=== PATIENT | male | born 1945 | race Caucasian/White ===

== ENCOUNTER 2022-07-30 14:32 | Observation (INO) | payer MEDICARE ==
[2022-07-30 15:30] LABS: Basophils % (A) 1 %; Eosinophils # (A) 0.2 k/uL (0-0.7); Eosinophils % (A) 2 %; HGB 14.9 gm/dL (13.0-17.5); Lymphocytes # (A) 1.7 k/uL (1.0-4.8); Lymphocytes % (A) 21 %; MCH 30.6 pg (25.0-35.0); MCHC 34.5 g/dL (31.0-37.0); MCV 88.6 fL (80.0-100.0); Mean Platelet Volume 7.3; Monocytes # (A) 0.5 k/uL (0-1.0); Monocytes % (A) 6 %; Neutrophils # (A) 5.7 k/uL (1.3-7.7); Neutrophils % (A) 68 %; Platelet Count 286 k/uL (150-450); RBC 4.86 m/uL (4.30-5.90); RDW 13.5 % (11.5-15.5); WBC 8.3 k/uL (3.8-10.6)
[2022-07-30 15:44] LABS: Albumin 4.7 g/dL (3.5-5.0); Calcium 9.8 mg/dL (8.4-10.2); Magnesium 2.1 mg/dL (1.6-2.3); Partial Thromboplastin Time 24.8 sec (22.0-30.0); Potassium 4.8 mmol/L (3.5-5.1); Prothrombin Time 10.4 sec (9.0-12.0); Total Bilirubin 0.7 mg/dL (0.2-1.3); Total Protein 7.3 g/dL (6.3-8.2)
[2022-07-30] MEDS ORDERED: SODIUM CHLORIDE 0.9% 1,000 ML IV ONE (16:23)
--- NOTE | 2022-07-30 16:53 | XR ---
EXAMINATION TYPE: XR chest 2V DATE OF EXAM: 07/30/2022 COMPARISON: NONE HISTORY: Pain TECHNIQUE: 2 views FINDINGS: There is no heart failure nor confluent pneumonic infiltrate. Heart size is normal. There a re sternal wires. Costophrenic angles are fairly clear. Bony thorax is intact. IMPRESSION: No active cardiopulmonary disease. Normal heart.
[2022-07-30] MEDS ORDERED: NALOXONE 0.4 MG/ML 1 ML VIAL IV PRN (17:32)
--- NOTE | 2022-07-30 17:34 | ED ---
Chest Pain HPI - General Chief Complaint: Chest Pain Stated Complaint: chest pain Time Seen by Provider: 07/30/22 16:07 Source: patient Mode of arrival: wheelchair Limitations: no limitations - History of Present Illness Initial Comments: Patient is a 76-year-old male with history of CAD and hypertension presenting with chief complaint of chest pain. Patient states pain started yesterday and is located primarily on the left side. He notices it mostly when at rest. States that he was at the gym today and the pain was not active. No radiation down the arm, up the neck, or to the back. No nausea, vomiting, diaphoresis. No difficulty breathing. No cough or hemoptysis. No palpitations, weakness, abdominal pain, headache, dizziness, vision or hearing changes. - Related Data Home Medications Medication Instructions Recorded Confirmed Atorvastatin [Lipitor] 10 mg PO DAILY 07/30/22 07/30/22 Lisinopril-Hctz 10-12.5 mg 1 tab PO DAILY 07/30/22 07/30/22 [Zestoretic 10-12.5] Metoprolol Tartrate 25 mg PO BID 07/30/22 07/30/22 Allergies Allergy/AdvReac Type Severity Reaction Status Date / Time Penicillins Allergy Rash/Hives Verified 07/30/22 17:40 Review of Systems ROS Statement: Those systems with pertinent positive or pertinent negative responses have been documented in the HPI. ROS Other: All systems not noted in ROS Statement are negative. EKG Findings - EKG Comments: EKG Findings:: Sinus rhythm rate of 66. NM interval 180. QRS duration 89. QT/QTC 392/405. Inverted T waves in lead III. No ST-T deviation. No previous EKG for comparison. This EKG was also shown to and interpreted by my attending Dr. Park. Past Medical History Past Medical History: Coronary Artery Disease (CAD) History of Any Multi-Drug Resistant Organisms: None Reported Past Surgical History: Coronary Bypass/CABG Past Psychological History: No Psychological Hx Reported Smoking Status: Never smoker Past Alcohol Use History: None Reported Past Drug Use History: None Reported General Exam Limitations: no limitations General appearance: alert, in no apparent distress Head exam: Present: atraumatic, normocephalic, normal inspection Eye exam: Present: normal appearance, PERRL, EOMI. Absent: scleral icterus, conjunctival injection, periorbital swelling Neck exam: Present: normal inspection Respiratory exam: Present: normal lung sounds bilaterally. Absent: respiratory distress, wheezes, rales, rhonchi, stridor, chest wall tenderness Cardiovascular Exam: Present: regular rate, normal rhythm, normal heart sounds. Absent: systolic murmur, diastolic murmur, rubs, gallop, clicks Neurological exam: Present: alert, oriented X3, CN II-XII intact Psychiatric exam: Present: normal affect, normal mood Skin exam: Present: warm, dry, intact, normal color. Absent: rash Course Vital Signs 07/30/22 14:34 Temperature 97.7 F Pulse Rate 72 Respiratory 20 Rate Blood Pressure 159/81 O2 Sat by Pulse 100 Oximetry Chest Pain MDM - MDM Patient is a 76-year-old male history of CAD presenting with left-sided chest pain that began yesterday. No radiation of pain or other symptoms at this time. Physical examination is unremarkable. Troponin is less than 0.012. No leuko cytosis or anemia. D-dimer 0.31. BUN of 22, patient is receiving IV hydration. EKG shows T-wave inversion in lead 3, no previous EKG for comparison. Patient will be admitted for observation and evaluation by cardiology. I spoke with Farrah Garcia from [facility] who accepted admission. I discussed this case with my attending Dr. Park. Disposition Clinical Impression: Chest pain Disposition: ADMITTED IP TO THIS [facility] Condition: Fair Time of Disposition: 17:34 Decision to Admit Reason: Admit from EC Decision Date: 07/30/22 Decision Time: 17:34
[2022-07-30] MEDS: SODIUM CHLORIDE 0.9% 1,000 ML IV SCH (18:59)
[2022-07-31 08:39] VITALS: RESP 16
--- NOTE | 2022-07-31 08:55 | P.CRDCN ---
History of Present Illness History of present illness: HISTORY OF PRESENT ILLNESS: This is a 76-year-old male with a past medical history significant for coronary artery disease with previous CABG in 1998, hypertension, and hyperlipidemia. Patient does not follow with a clinical informatics manager. We have been asked to see the patient in consultation for chest pain. Patient examined at the bedside. Patient states 2 days ago he had an episode of chest pain. He states he is pretty active and goes to the gym at least 5 days a week. He states he was at the gym and afterwards he began to have some chest pain. He states it felt like a pressure type sensation. He denied any nausea or vomiting. Denied any shortness of breath. Denied any diaphoresis. He states the pain lasted for a few minutes and then resolved. The patient denies any chest pain or pressure this morning. * EKG reveals sinus mechanism with T-wave inversions in lead 3. No previous EKG available for comparison. * Chest xray negative for acute process * Laboratory data: WBC 8.3. Hemoglobin 14.9. Platelet count 286. D-dimer 0.31. Sodium 130. Potassium 4.8. BUN 22. Creatinine 1.11. Troponin negative 3. ProBNP 96. * Current home cardiac medications include metoprolol tartrate 25 mg twice a day, Lipitor 10 mg daily, lisinopril-hydrochlorothiazide 10-12.5mg daily, and aspirin 81 mg daily REVIEW OF SYSTEMS: At the time of my exam: CONSTITUTIONAL: Denies fever or chills. HEENT: Denies blurred vision, vision changes, or eye pain. Denies hemoptysis CARDIOVASCULAR: Denies chest pain. Denies orthopnea. Denies PND. Denies palpitations RESPIRATORY: Denies shortness of breath. GASTROINTESTINAL: Denies abdominal pain. Denies nausea or vomiting. HEMATOLOGIC: Denies bleeding disorders. GENITOURINARY: Denies any blood in urine. SKIN: Denies pruitis. Denies rash. PHYSICAL EXAM: VITAL SIGNS: Reviewed. GENERAL: Well-developed in no acute distress. HEENT: Head is normocephalic. Pupils are equal, round. Sclerae anicteric. Mucous membranes of the mouth are moist. Neck supple. No JVD or thyromegaly LUNGS: Respirations even and unlabored. Lungs essentially clear to auscultation bilaterally. HEART: Regular rate and rhythm. S1 and S2 heard. ABDOMEN: Soft. Nondistended. Nontender. EXTREMITIES: Normal range of motion. No clubbing or cyanosis. Peripheral pulses intact. No lower extremity edema NEUROLOGIC: Awake and alert. Oriented x 3. ASSESSMENT: Chest pain Coronary artery disease with previous CABG Hypertension Hyperlipidemia PLAN: An acute coronary event has been ruled out Resume home cardiac medications Obtain 2-D echo to assess cardiac structure and function Patient to undergo stress echo today to assess for ischemia Further recommendations pending patient's course Nurse practitioner note has been reviewed by physician. Signing provider agrees with the documented findings, assessment, and plan of care. Past Medical History Past Medical History: Coronary Artery Disease (CAD) History of Any Multi-Drug Resistant Organisms: None Reported Past Surgical History: Coronary Bypass/CABG Past Psychological History: No Psychological Hx Reported Smoking Status: Never smoker Past Alcohol Use History: None Reported Past Drug Use History: None Reported Medications and Allergies Home Medications Medication Instructions Recorded Confirmed Type Atorvastatin [Lipitor] 10 mg PO DAILY 07/30/22 07/30/22 History Lisinopril-Hctz 10-12.5 mg 1 tab PO DAILY 07/30/22 07/30/22 History [Zestoretic 10-12.5] Metoprolol Tartrate 25 mg PO BID 07/30/22 07/30/22 History Allergies Allergy/AdvReac Type Severity Reaction Status Date / Time Penicillins Allergy Rash/Hives Verified 07/30/22 17:40 Physical Exam Vitals: Vital Signs Temp Pulse Pulse Pulse Resp BP BP 07/31/22 02:00 98.0 F 72 20 139/61 07/30/22 23:00 97.8 F 68 68 18 134/78 07/30/22 14:34 97.7 F 72 20 159/81 Pulse Ox 07/31/22 02:00 96 07/30/22 23:00 95 07/30/22 14:34 100 Intake and Output 07/30/22 07/31/22 07/31/22 22:59 06:59 14:59 Intake Total 150 Output Total 300 200 Balance -150 -200 Intake: Intake, IV Titration 150 Amount Sodium Chloride 0.9% 1, 150 000 ml @ 75 mls/hr IV . [id number] [facility] Rx#:[id number] Output: Urine 300 200 Other: Voiding Method Urinal # Voids 1 Results 07/30/22 14:41 07/30/22 14:41 Cardiac Enzymes 07/30/22 07/30/22 07/30/22 Range/Units 14:41 14:41 18:01 AST 33 (17-59) U/L Troponin I <0.012 <0.012 (0.000-0.034) ng/mL 07/30/22 Range/Units 20:46 AST (17-59) U/L Troponin I <0.012 (0.000-0.034) ng/mL Coagulation 07/30/22 Range/Units 14:41 PT 10.4 (9.0-12.0) sec APTT 24.8 (22.0-30.0) sec CBC 07/30/22 Range/Units 14:41 WBC 8.3 (3.8-10.6) k/uL RBC 4.86 (4.30-5.90) m/uL Hgb 14.9 (13.0-17.5) gm/dL Hct 43.0 (39.0-53.0) % Plt Count 286 (150-450) k/uL Comprehensive Metabolic Panel 07/30/22 Range/Units 14:41 Sodium 137 (137-145) mmol/L Potassium 4.8 (3.5-5.1) mmol/L Chloride 101 (98-107) mmol/L Carbon Dioxide 23 (22-30) mmol/L BUN 22 H (9-20) mg/dL Creatinine 1.11 (0.66-1.25) mg/dL Glucose 106 H (74-99) mg/dL Calcium 9.8 (8.4-10.2) mg/dL AST 33 (17-59) U/L ALT 31 (4-49) U/L Alkaline Phosphatase 89 (38-126) U/L Total Protein 7.3 (6.3-8.2) g/dL Albumin 4.7 (3.5-5.0) g/dL Current Medications Generic Name Dose Route Start Last Admin Trade Name Freq PRN Reason Stop Dose Admin Atorvastatin Calcium 10 mg 07/31/22 09:00 Atorvastatin 10 Mg Tab PO DAILY [facility] Lisinopril/HCTZ 1 each 07/31/22 09:00 Lisinopril-Hctz 10-12.5 Mg 1 Each Tab PO DAILY [facility] Sodium Chloride 1,000 mls @ 75 mls/hr 07/30/22 17:45 07/30/22 18:59 Saline 0.9% IV 75 mls/hr .[id number] [facility] Administration Metoprolol Tartrate 25 mg 07/31/22 09:00 Metoprolol Tartrate 25 Mg Tab PO BID [facility] Naloxone HCl 0.2 mg 07/30/22 17:32 Naloxone 0.4 Mg/Ml 1 Ml Vial IV Q2M PRN Opioid Reversal Intake and Output 07/30/22 07/31/22 07/31/22 22:59 06:59 14:59 Intake Total 150 Output Total 300 200 Balance -150 -200 Intake: Intake, IV Titration 150 Amount Sodium Chloride 0.9% 1, 150 000 ml @ 75 mls/hr IV . [id number] [facility] Rx#:[id number] Output: Urine 300 200 Other: Voiding Method Urinal # Voids 1 07/30/22 14:41 07/30/22 14:41
[2022-07-31] MEDS ORDERED: ASPIRIN 81 MG PO SCH (09:00)
[2022-07-31] MEDS ORDERED: METOPROLOL TARTRATE 25 MG TAB PO SCH (09:00)
[2022-07-31] MEDS ORDERED: LISINOPRIL-HCTZ 10-12.5 MG 1 EACH TAB PO SCH (09:00)
[2022-07-31] MEDS ORDERED: ATORVASTATIN 10 MG TAB PO SCH (09:00)
[2022-07-31] MEDS: SODIUM CHLORIDE 0.9% 1,000 ML IV SCH (09:20)
[2022-07-31 11:11] LABS: Chol/HDL Ratio 3.84 Ratio; LDL Cholesterol,Calculated 109.7 mg/dL (0.0-131.0)
--- NOTE | 2022-07-31 11:20 | CA ---
Stress Echo Report Benjamin Ramos Age: 76 Gender: M : 1945 Exam Date: 07/31/2022 10:07 Exam Location: [place] [facility] Ht (in): 66 Wt (lb): 165 Ordering Physician: Lili Jewell Referring Physician: [id number] Emergency Operator: Glory Sheikh RDCS Technologist Procedure CPT: Indication: CP, hx of CAD ICD-9 Codes: Rhythm: Patient History: CHEST PAIN, HTN, ELEVATED CHOLESTEROL LEVELS, CARDIAC CATHETERIZATION, CABGX4 Cardiac Medications: Medications in past 24 hours: Contrast: Stress Results Protocol: Jesus Total dose(mL): Exercise Duration (min:sec): Max ST Depression (mm): Angina Score: Ibrahim Score: METS: 9.1 Resting HR: 111 Resting BP: 161 / 87 Peak HR: 153 Peak BP: 176 / 80 Max Predicted HR: 144 106 % Max Predicted HR Target HR: 122 Double Product: [id number] Stress Summary: BP Response: Reason for Termination: MAX EXERTION/TARGET HR Cardiac Symptoms: NO SYMPTOMS ECG Analysis Resting ECG: Stress ECG: Arrhythmia: Echo Analysis Resting Echo: Peak Echo Analysis: MEASUREMENTS (Male/Female) Normal Values CONCLUSIONS Patient underwent exercise stress echo with a Jesus protocol treadmill stress test. Patient exercised into Stage 2 for a total of 7 minutes 30 seconds reaching a total of 9.1 METS. Patient's maximum heart rate was 153 which represented 106 % age-predicted maximum heart rate. Stress EKG portion: At baseline patient's EKG showed normal sinus rhythm, normal axis, no significant ST or T wave abnormalities. At peak exercise, EKG showed nonspecific and nondiagnostic upsloping 0.[address] depressions in the inferior and lateral leads. Stress echo portion: 2-D echocardiogram was performed in the parasternal long, personal short, apical 2 and apical four-chamber views at rest, peak exercise and in recovery. At baseline, echocardiogram showed left ventricular ejection fraction 55% without wall motion abnormalities. With peak exercise, echocardiogram shows improvement in left ventricular ejection fraction, increase contractility, decrease in left ventricular end systolic dimension without wall motion abnormalities consistent with a normal response to exercise. Conclusions: 1. Normal EKG and echo response to exercise without evidence of inducible ischemia. 2. Fair exercise capacity. Dr. Shawn Whittaker DO (Electronically Signed) Final Date: 31 July 2022 11:19
[2022-07-31 12:36] VITALS: BP 153/84; PULSE 65; TEMP 97.7
--- NOTE | 2022-07-31 14:31 | P.HPIM ---
History of Present Illness H&P Date: 07/31/22 This is a 76-year-old male who presented to the emergency department with chest pain that he noticed while at rest. Patient does have a past medical history of coronary disease along with hypertension. Serial troponins were negative and cardiology was consulted. Patient does take cholesterol medications along with blood pressure medications and metoprolol on a daily basis and follows with Dr. Valdez in the outpatient setting. Chest x-ray and admission shows no active cardiopulmonary process with a normal heart and EKG shows sinus rhythm with a heart rate of 66 bpm. Labs reviewed and within normal limits and d-dimer was also done which was negative at 0.31. Serial troponins 3 were 0.012. Patient was seen and evaluated by cardiology earlier this morning and 2-D echo along with stress test was ordered. Review Of Systems: Constitutional: No fever, no chills, no night sweats. No weight change. No weakness, fatigue or lethargy. No daytime sleepiness. EENT: No headache. No blurred vision or double vision, no loss of vision. No loss of Hearing, no ringing in the ears, no dizziness. No nasal drainage or congestion. No epistaxis. No sore throat. Lungs: No shortness of breath, cough, no sputum production. No wheezing. Cardiovascular: Reports chest pain while at rest at home that had resolved, no lower extremity edema. No palpitations. No paroxysmal nocturnal dyspnea. No orthopnea. No lightheadedness or dizziness. No syncopal episodes. Abdominal: No abdominal pain. No nausea, vomiting. No diarrhea. No constipation. No bloody or tarry stools.. No loss of appetite. Genitourinary: No dysuria, increased frequency, urgency. No urinary retention. Musculoskeletal: No myalgias. No muscle weakness, no gait dysfunction, no frequent falls. No back pain. No neck pain. Integumentary: No wounds, no lesions. No rash or pruritus. No unusual bruising. No change in hair or nails. Neurologic: No aphasia. No facial droop. No change in mentation. No head injury. No headache. No paralysis. No paresthesia. Psychiatric: No depression. No anxiety. No mood swings. Endocrine: No abnormal blood sugars. No weight change. No excessive sweating or thirst. No cold intolerance. PHYSICAL EXAMINATION: GENERAL: The patient is alert and oriented x4, Well developed, well nourished. HEENT: Pupils are round and equally reacting to light. EOMI. no scleral icterus. No conjunctival pallor. Normocephalic, atraumatic. No pharyngeal erythema. No thyromegaly. CARDIOVASCULAR: S1 and S2 muffled PULMONARY: Breath sounds are clear to auscultation with no wheezing or rhonchi noted. ABDOMEN: soft. Nontender on exam. obese. non-distended, normoactive bowel sounds. No palpable organomegaly. MUSCULOSKELETAL: No joint swelling or deformity. EXTREMITIES: No cyanosis, clubbing, or pedal edema. NEUROLOGICAL: Gross neurological examination did not reveal any focal deficits. SKIN: No rashes. Assessment: Chest pain, ruled out ACS History of coronary artery disease History of coronary artery bypass grafting Hyperlipidemia Hypertension GI prophylaxis DVT prophylaxis Full code Plan: Recommend to continue with current medications and management with cardiology following. Patient was seen and evaluated by cardiology this morning and serial troponins were negative and underwent 2-D echo with stress testing which showed an EF of 55% without wall motion abnormalities and during peak exercise improved LV ejection fraction within normal stress echo noted. Patient was encouraged to continue taking medications along with statin and follow-up with primary care provider in cardiology outpatient. Patient will be discharged later today. The impression and plan of care has been dictated by Sally Valencia, nurse practitioner as directed. Dr. Ashok MD I have performed a history and examination and MDM of this patient, discussed the same with the dictator, and agree with the dictator's assessment and plan as written ,documented as a scribe. Based on total visit time, I have performed more than 50% of the visit. Any additional findings or plans will be noted. Past Medical History Past Medical History: Coronary Artery Disease (CAD) History of Any Multi-Drug Resistant Organisms: None Reported Past Surgical History: Coronary Bypass/CABG Past Psychological History: No Psychological Hx Reported Smoking Status: Never smoker Past Alcohol Use History: None Reported Past Drug Use History: None Reported Medications and Allergies Home Medications Medication Instructions Recorded Confirmed Type Atorvastatin [Lipitor] 10 mg PO DAILY 07/30/22 07/30/22 History Lisinopril-Hctz 10-12.5 mg 1 tab PO DAILY 07/30/22 07/30/22 History [Zestoretic 10-12.5] Metoprolol Tartrate 25 mg PO BID 07/30/22 07/30/22 History Aspirin 81 mg PO DAILY 30 Days #30 tab 07/31/22 Rx Allergies Allergy/AdvReac Type Severity Reaction Status Date / Time Penicillins Allergy Rash/Hives Verified 07/30/22 17:40 Physical Exam Vitals: Vital Signs Temp Pulse Pulse Pulse Resp BP BP 07/31/22 07:00 97.9 F 88 16 166/100 07/31/22 02:00 98.0 F 72 20 139/61 07/30/22 23:00 97.8 F 68 68 18 134/78 07/30/22 14:34 97.7 F 72 20 159/81 Pulse Ox 07/31/22 07:00 97 07/31/22 02:00 96 07/30/22 23:00 95 07/30/22 14:34 100 Intake and Output 07/30/22 07/31/22 07/31/22 22:59 06:59 14:59 Intake Total 150 Output Total 300 200 Balance -150 -200 Intake: Intake, IV Titration 150 Amount Sodium Chloride 0.9% 1, 150 000 ml @ 75 mls/hr IV . [id number] [facility] Rx#:[id number] Output: Urine 300 200 Other: Voiding Method Urinal # Voids 1 Results CBC & Chem 7: 07/30/22 14:41 07/30/22 14:41 Labs: Abnormal Lab Results - Last 24 Hours (Table) 07/30/22 Range/Units 14:41 BUN 22 H (9-20) mg/dL Glucose 106 H (74-99) mg/dL Assessment and Plan Time with Patient: Greater than 30
--- NOTE | 2022-08-01 11:18 | CA ---
Transthoracic Echo Report Name: Benjamin Ramos Age: 76 Gender: M : 1945 Exam Date: 07/31/2022 10:23 Exam Location: [place] [facility] Ht (in): 66 Wt (lb): 165 Ordering Physician: Lili Jewell Attending/Referring Phys: [id number], Best Credit Administrator Glory Sheikh, ABEBA Procedure CPT: Indications: LV function Cardiac Hx: Technical Quality: Good Contrast 1: Total Dose (mL): Contrast 2: Total Dose (mL): MEASUREMENTS (Male / Female) Normal Values 2D ECHO LV Diastolic Diameter PLAX 4.2 cm 4.2 - 5.9 / 3.9 - 5.3 cm LV Systolic Diameter PLAX 2.6 cm IVS Diastolic Thickness 1.1 cm 0.6 - 1.0 / 0.6 - 0.9 cm LVPW Diastolic Thickness 1.0 cm 0.6 - 1.0 / 0.6 - 0.9 cm LV Relative Wall Thickness 0.5 RV Internal Dim ED PLAX 3.0 cm LA Systolic Diameter LX 3.5 cm 3.0 - 4.0 / 2.7 - 3.8 cm LA Volume 25.3 cm??? 18 - 58 / 22 - 52 cm??? M-MODE Aortic Root Diameter MM 3.1 cm MV E Point Septal Separation 0.3 cm AV Cusp Separation MM 2.2 cm DOPPLER AV Peak Velocity 154.3 cm/s AV Peak Gradient 9.5 mmHg MV Area PHT 4.1 cm??? Mitral E Point Velocity 88.5 cm/s Mitral A Point Velocity 92.8 cm/s Mitral E to A Ratio 1.0 MV Deceleration Time 183.6 ms MV E' Velocity 7.5 cm/s Mitral E to MV E' Ratio 11.8 FINDINGS Left Ventricle Left ventricular ejection fraction is estimated at 60-65 %. Left ventricular cavity size normal. Left ventricular wall thickness normal. Right Ventricle Normal right ventricular size and function. Unable to estimate the right ventricular systolic pressure. Right Atrium Normal right atrial size. Left Atrium Normal left atrial size. No evidence for an atrial septal defect. Mitral Valve Structurally normal mitral valve. No mitral stenosis, regurgitation or prolapse. Aortic Valve Trileaflet aortic valve. No aortic valve stenosis or regurgitation. Tricuspid Valve Structurally normal tricuspid valve. No tricuspid stenosis, regurgitation or prolapse. Pulmonic Valve Structurally normal pulmonic valve. Pericardium Normal pericardium. No pericardial effusion. Aorta Normal size aortic root and proximal ascending aorta. CONCLUSIONS Normal left ventricular ejection fraction 60-65% Normal left atrial and right atrial size No pericardial effusion Previewed by: Dr. Shawn Whittaker DO (Electronically Signed) Final Date: 01 August 2022 11:17
--- NOTE | 2022-08-02 16:29 | P.DS ---
Providers Date of admission: 07/30/22 16:33 Expected date of discharge: 07/31/22 Attending physician: Lit Yadav Consults: 07/30/22 17:32 Consult Physician Urgent Consulting Provider: [facility] Consult Reason/Comments: Chest pain, history of CAD Do you want consulting provider notified?: Yes Primary care physician: Daniele Valdez [facility] Course: Final diagnosis Chest pain, ruled out ACS History of coronary artery disease History of coronary artery bypass grafting Hyperlipidemia Hypertension GI prophylaxis DVT prophylaxis Full code Discharge disposition Patient is being discharged in a stable condition with guarded prognosis to home. Patient will follow-up with Dr. Valdez in the outpatient setting upon discharge. Patient is to follow up with cardiology Dr. Whittaker in the outpatient setting. Total time taken is greater than 35 minutes. Hospital course This is a 76-year-old male who was recently admitted with chest pain and evaluated by cardiology. Patient underwent stress echo that was normal and encouraged to continue with current medications and follow up with pcp and cardiology on discharge. Currently no reports of chest pain, shortness of breath, or palpitations. Patient is afebrile. No reports of nausea or vomiting and patient is tolerating diet. Patient will be discharged home today. Physical exam: Gen: This is a 76 year old male who is awake, alert and oriented x3. well developed, well nourished. HEENT: Head is atraumatic, normocephalic. Pupils equal, round. Sclerae is anicteric. NECK: Supple. No JVD. No lymphadenopathy. No thyromegaly. LUNGS: Clear to auscultation. No wheezes or rhonchi. No intercostal retractions. HEART: Regular rate and rhythm. No murmur. ABDOMEN: Soft. Bowel sounds are present. No masses. No tenderness. EXTREMITIES: No pedal edema. No calf tenderness. NEUROLOGICAL: Patient is awake, alert and oriented x3. Cranial nerves 2 through 12 are grossly intact. Please refer to medication reconciliation sheet for a list of medications. The impression and plan of care has been dictated by Sally Valencia, Nurse Practitioner as directed. Dr. Ashok MD I have performed a history and examination and MDM of this patient, discussed the same with the dictator, and agree with the dictator's assessment and plan as written ,documented as a scribe. Based on total visit time, I have performed more than 50% of the visit. Patient Condition at Discharge: Stable Plan - Discharge Summary Discharge Rx Participant: No New Discharge Prescriptions: New Aspirin 81 mg PO DAILY 30 Days #30 tab Continue Lisinopril-Hctz 10-12.5 mg [Zestoretic 10-12.5] 1 tab PO DAILY Metoprolol Tartrate 25 mg PO BID Atorvastatin [Lipitor] 10 mg PO DAILY Discharge Medication List Atorvastatin [Lipitor] 10 mg PO DAILY 07/30/22 [History] Lisinopril-Hctz 10-12.5 mg [Zestoretic 10-12.5] 1 tab PO DAILY 07/30/22 [History] Metoprolol Tartrate 25 mg PO BID 07/30/22 [History] Aspirin 81 mg PO DAILY 30 Days #30 tab 07/31/22 [Rx] Follow up Appointment(s)/Referral(s): Shawn Whittaker DO [STAFF PHYSICIAN] - 1 Week (office will call with appointment ) Daniele Valdez MD [Primary Care Provider] - 1-2 days Patient Instructions/Handouts: Chest Pain (DC), Cardiac Stress Test (DC) Activity/Diet/Wound Care/Special Instructions: Activity Limited until follow-up Follow-up with primary care provider on discharge Follow-up with cardiology as discussed in one week Continue taking medications as prescribed Continue heart healthy low-cholesterol diet Discharge Disposition: HOME SELF-CARE
== END 2022-07-31 12:55 | disposition home or self-care (01) ==
LOC: EC 14:32 → 6NMEDSUR 16:33
PROVIDERS: ADMIT Hospitalist; ATTEND Hospitalist
DX: R07.89 Other chest pain (principal); I25.10 Atherosclerotic heart disease of native coronary artery without angina pectoris; I10 Essential (primary) hypertension; E78.5 Hyperlipidemia, unspecified; Z79.899 Other long term (current) drug therapy; Z88.0 Allergy status to penicillin; Z95.1 Presence of aortocoronary bypass graft; Z79.82 Long term (current) use of aspirin
CPT/HCPCS: 96360; 96361; 99285; 36415; 93005; 93306; 93351; 85379; 83880; 80061; 80053; 83735; 84484; 85025; 85610; 85730; 71046; G0378 ×2